=== PATIENT | male | born 1995 | race Caucasian/White ===

== ENCOUNTER 2022-09-08 10:35 | Emergency (ER) | payer MEDICAID ==
[2022-09-08] MEDS ORDERED: Dental Adhesive 1 Tube DENT ONE (12:31)
== END 2022-09-08 12:55 | disposition home or self-care (01) ==
LOC: JP.ED 10:35
DX: S02.5XXA Fracture of tooth (traumatic), initial encounter for closed fracture (principal); Z88.0 Allergy status to penicillin; Z88.2 Allergy status to sulfonamides; X58.XXXA Exposure to other specified factors, initial encounter
CPT/HCPCS: 99282; A9270